=== PATIENT | female | born 1995 | race African-American/Black ===

== ENCOUNTER 2016-06-25 16:56 | Emergency (ER) | payer OTHER | END 2016-06-25 17:00 | disposition left against medical advice (07) | LOC: ER 16:56 | DX: Z53.21 Procedure and treatment not carried out due to patient leaving prior to being seen by health care provider (principal) ==

== ENCOUNTER 2016-06-25 18:37 | Emergency (ER) | payer OTHER ==
--- NOTE | 2016-06-25 19:14 | ER Document Report ---
ED Medical Screen (RME) - General Stated Complaint: POSSIBLE FLU Notes: 20 yo female c/o flu like symptoms x 1 day. + fever, headache, cough. + flu exposure at work. 14 weeks . TRAVEL OUTSIDE OF THE [place] IN LAST 30 DAYS: No - Related Data Allergies/Adverse Reactions: Sulfa (Sulfonamide Antibiotics) Allergy (Verified 06/25/16 19:12) Past Medical History - Past Medical History Cardiac Medical History: Denies: Hx Coronary Artery Disease, Hx Heart Attack, Hx Hypertension Pulmonary Medical History: Denies: Hx Asthma, Hx Bronchitis, Hx COPD, Hx Pneumonia Neurological Medical History: Denies: Hx Cerebrovascular Accident, Hx Seizures Musculoskeltal Medical History: Denies Hx Arthritis Past Surgical History: Reports: Hx Dilation and Curettage - Immunizations Hx Diphtheria, Pertussis, Tetanus Vaccination: Yes Physical Exam - Vital signs Vitals: Temp Pulse Resp BP Pulse Ox 97.8 F 82 16 159/74 H 100 06/25/16 18:50 06/25/16 18:50 06/25/16 18:50 06/25/16 18:50 06/25/16 18:50 Course - Vital Signs Vital signs: Temp Pulse Resp BP Pulse Ox 97.8 F 82 16 159/74 H 100 06/25/16 18:50 06/25/16 18:50 06/25/16 18:50 06/25/16 18:50 06/25/16 18:50
[2016-06-25] MEDS ORDERED: ACETAMINOPHEN 325 MG TABLET PO ONE (21:18)
--- NOTE | 2016-06-25 21:19 | ER Document Report ---
HPI - HPI Patient complains to provider of: fever, congestion Pain Level: 3 Context: Patient is a 20-year-old female, at 14 weeks gestation by first trimester ultrasound, that comes emergency department for chief complaint of fever, congestion, mild cough. Symptoms started today. Patient states there has been a "flu outbreak at work", patient has not been vaccinated for influenza. Patient is taking vitamins, denies any other daily medications, denies any abdominal pain, vomiting, vaginal bleeding or discharge. - REPRODUCTIVE LMP: [id number] Reproductive: REPORTS: : - DERM Skin Color: Normal Past Medical History - General Information source: Patient - Social History Smoking Status: Never Smoker Chew tobacco use (# tins/day): No Frequency of alcohol use: None Drug Abuse: None Lives with: Family Family History: Reviewed & Not Pertinent Patient has suicidal ideation: No Patient has homicidal ideation: No - Medical History Medical History: Negative - Past Medical History Cardiac Medical History: Denies: Hx Coronary Artery Disease, Hx Heart Attack, Hx Hypertension Pulmonary Medical History: Denies: Hx Asthma, Hx Bronchitis, Hx COPD, Hx Pneumonia Neurological Medical History: Denies: Hx Cerebrovascular Accident, Hx Seizures Renal/ Medical History: Denies: Hx Peritoneal Dialysis Musculoskeltal Medical History: Denies Hx Arthritis Past Surgical History: Reports: Hx Dilation and Curettage - Immunizations Hx Diphtheria, Pertussis, Tetanus Vaccination: Yes Vertical Provider Document - CONSTITUTIONAL General Appearance: WD/WN, No Apparent Distress - INFECTION CONTROL TRAVEL OUTSIDE OF THE [place] IN LAST 30 DAYS: No - HEENT HEENT: Atraumatic, Normocephalic, Pharyngeal Erythema - Very mild. negative: Tympanic Membrane Red, Tympanic Membrane Bulging - NECK Neck: Normal Inspection - RESPIRATORY Respiratory: Breath Sounds Normal, No Respiratory Distress O2 Sat by Pulse Oximetry: 100 - CARDIOVASCULAR Cardiovascular: Regular Rate, Regular Rhythm - GI/ABDOMEN Gastrointestinal: Abdomen Soft, Abdomen Non-Tender - BACK Back: Normal Inspection - MUSCULOSKELETAL/EXTREMETIES Musculoskeletal/Extremeties: MAEW, FROM, Non-Tender - NEURO Level of Consciousness: Awake, Alert, Appropriate - DERM Integumentary: Warm, Dry, No Rash Course - Re-evaluation Re-evalutation: Patient alert and well-appearing, unremarkable physical exam, influenza negative. Patient happy with these findings. No concerning abnormalities or indication for additional workup at this time. - Vital Signs Vital signs: Temp Pulse Resp BP Pulse Ox 97.8 F 82 16 159/74 H 100 06/25/16 18:50 06/25/16 18:50 06/25/16 18:50 06/25/16 18:50 06/25/16 18:50 Discharge - Discharge Clinical Impression: Sinus congestion Fever Qualifiers: Fever type: unspecified Qualified Code(s): R50.9 - Fever, unspecified Condition: Stable Disposition: HOME, SELF-CARE Additional Instructions: Influenza test is negative. Symptoms are consistent with an upper respiratory virus, take Tylenol, hydrate, rest. Follow-up with primary care. Return to the emergency department for any concerning symptoms. Forms: Return to Work
[2016-06-25 23:16] VITALS: BP 128/77
== END 2016-06-25 22:10 | disposition home or self-care (01) ==
LOC: ER 18:37
DX: O26.92 Pregnancy related conditions, unspecified, second trimester (principal); R09.81 Nasal congestion; R50.9 Fever, unspecified; Z3A.14 14 weeks gestation of pregnancy
CPT/HCPCS: 87804; 99283

== ENCOUNTER 2017-11-23 19:14 | Emergency (ER) | payer MEDICAID, OTHER ==
--- NOTE | 2017-11-23 20:11 | ER Document Report ---
ED GI/ - General Chief Complaint: Abdominal Cramping Stated Complaint: ABDOMINAL PAIN Time Seen by Provider: 11/23/17 20:04 Notes: Patient is a 22-year-old female, at 12 weeks gestation by first trimester ultrasound, the [facility] emergency department for chief complaint of lower abdominal pain. Pain is intermittent, has been happening since she denies vaginal bleeding, discharge, dysuria, flank pain, fever, vomiting. She states that she was having similar symptoms when she had a previous miscarriages. She has had 2 D&C procedures. Denies any other medical history, on vitamins and Reglan. TRAVEL OUTSIDE OF THE [place] IN LAST 30 DAYS: No - Related Data Allergies/Adverse Reactions: Sulfa (Sulfonamide Antibiotics) Allergy (Verified 11/23/17 19:15) Past Medical History - General Information source: Patient - Social History Smoking Status: Never Smoker Frequency of alcohol use: None Drug Abuse: None Lives with: Family Family History: Reviewed & Not Pertinent Patient has suicidal ideation: No Patient has homicidal ideation: No - Medical History Medical History: Negative - Past Medical History Cardiac Medical History: Denies: Hx Coronary Artery Disease, Hx Heart Attack, Hx Hypertension Pulmonary Medical History: Denies: Hx Asthma, Hx Bronchitis, Hx COPD, Hx Pneumonia Neurological Medical History: Denies: Hx Cerebrovascular Accident, Hx Seizures Renal/ Medical History: Denies: Hx Peritoneal Dialysis Musculoskeletal Medical History: Denies Hx Arthritis Past Surgical History: Reports: Hx Dilation and Curettage - Immunizations Hx Diphtheria, Pertussis, Tetanus Vaccination: Yes Review of Systems - Review of Systems Constitutional: No symptoms reported EENT: No symptoms reported Cardiovascular: No symptoms reported Respiratory: No symptoms reported Gastrointestinal: See HPI Genitourinary: See HPI Female Genitourinary: See HPI Musculoskeletal: No symptoms reported Skin: No symptoms reported Hematologic/Lymphatic: No symptoms reported Neurological/Psychological: No symptoms reported Physical Exam - Vital signs Vitals: Temp Pulse Resp BP Pulse Ox 99.2 F 75 16 147/70 H 100 11/23/17 19:21 11/23/17 19:21 11/23/17 19:21 11/23/17 19:21 11/23/17 19:21 - Notes Notes: GENERAL: Alert, interacts well. No acute distress. HEAD: Normocephalic, atraumatic. EYES: Pupils equal, round, and reactive to light. Extraocular movements intact. ENT: Oral mucosa moist, tongue midline. NECK: Full range of motion. Supple. Trachea midline. LUNGS: Clear to auscultation bilaterally, no wheezes, rales, or rhonchi. No respiratory distress. HEART: Regular rate and rhythm. No murmur ABDOMEN: Soft, non-tender. Non-distended. Bowel sounds present in all 4 quadrants. EXTREMITIES: Moves all 4 extremities spontaneously. No edema, normal radial and dorsalis pedis pulses bilaterally. No cyanosis. BACK: no cervical, thoracic, lumbar midline tenderness. No saddle anesthesia, normal distal neurovascular exam. NEUROLOGICAL: Alert and oriented x3. Normal speech. [cranial nerves II through XII grossly intact]. PSYCH: Normal affect, normal mood. SKIN: Warm, dry, normal turgor. No rashes or lesions noted. Course - Re-evaluation Re-evalutation: Patient currently asymptomatic, soft benign abdomen, unremarkable vital signs. Patient is very well-appearing. HCG is elevated appropriately, urinalysis unremarkable with no infection. Patient reporting O+ blood type. Ultrasound showing small subchorionic bleed, living intrauterine gestation, no other noted abnormalities. Patient was provided with a copy of the report, this was discussed, discussed recommendations, follow-up, return precautions. Patient states understanding and agreement. - Vital Signs Vital signs: Temp Pulse Resp BP Pulse Ox 98.9 F 72 18 138/76 H 97 11/23/17 23:11 11/23/17 23:11 11/23/17 23:11 11/23/17 23:11 11/23/17 23:11 - Laboratory Laboratory results interpreted by me: 11/23/17 11/23/17 20:39 20:39 Beta HCG, Quant 47168.00 H Urine Ketones 20 H Urine Ascorbic Acid 40 H Discharge - Discharge Clinical Impression: Abdominal cramping affecting Condition: Stable Disposition: HOME, SELF-CARE Additional Instructions: Your evaluation shows a small subchorionic bleed as we discussed, this is most likely the cause of your pain, no other abnormalities are seen. Please use caution, no running, heavy lifting, jumping, sexual intercourse, or other significant physical activity until cleared by HVAC INSTRUCTOR. Follow closely with OB/ ANALYTICS DEVELOPER. Return for any concerning symptoms including severe pain, passing out, fever, or any other concerning symptoms. Forms: Return to Work, Elevated Blood Pressure Referrals: SHUKRI BERGMAN MD [Primary Care Provider] - Follow up as needed
[2017-11-23 21:01] LABS: APPEARANCE,URINE CLEAR; BILIRUBIN,URINE NEGATIVE (NEGATIVE); COLOR,URINE YELLOW; GLUCOSE, URINE NEGATIVE (NEGATIVE); KETONES,URINE 20 mg/dL (NEGATIVE); LEUKOCYTE ESTERASE,URINE NEGATIVE (NEGATIVE); NITRITE,URINE NEGATIVE (NEGATIVE); PROTEIN,URINE NEGATIVE (NEGATIVE); URINE SPECIFIC GRAVITY 1.017; UROBILINOGEN,URINE NEGATIVE mg/dL (<2.0)
--- NOTE | 2017-11-23 21:47 | RADIOLOGY REPORT (SQ) ---
EXAM DESCRIPTION: U/S OB TRANSVAG W/DOPPLER COMPLETED DATE/TIME: 11/23/2017 9:17 pm REASON FOR STUDY: 1st trimester, lower abd pain COMPARISON: None. TECHNIQUE: Transvaginal static and realtime grayscale images acquired of the pelvis. Additional meghan cted spectral and color Doppler images recorded. All images stored on PACs. bHCG: Pending. CLINICAL DATES: 12 weeks 5 days LIMITATIONS: None. FINDINGS: FETUS: Living intrauterine . ULTRASOUND EGA: 12 weeks 6 days ULTRASOUND MEGAN: 06/01/2018 CRL: 6.61 cm FHR: 155 beats per minute. SUBCHORIONIC BLEED: Yes SIZE OF BLEED: Small UTERUS: No masses. No anomalies. CERVICAL LENGTH: 3.7 cm Closed. RIGHT ADNEXA: Ovary not identified. No adnexal free fluid. No adnexal masses. LEFT ADNEXA: Normal vascular flow to the ovary. No adnexal free fluid. No adnexal masses. FREE FLUID: None. OTHER: No other significant finding. IMPRESSION: LIVING INTRAUTERINE . EGA 12 weeks 6 days Small subchorionic bleeding. Trimester of : First - 0 to 13 weeks. TECHNICAL DOCUMENTATION: JOB ID: [id number] [email or web address]- All Rights Reserved rev Reading location - IP/workstation name: [email or web address]
[2017-11-23 23:12] VITALS: BP 138/76
== END 2017-11-23 23:13 | disposition home or self-care (01) ==
LOC: ER 19:14
DX: O20.8 Other hemorrhage in early pregnancy (principal); O26.891 Other specified pregnancy related conditions, first trimester; R10.30 Lower abdominal pain, unspecified; Z3A.12 12 weeks gestation of pregnancy; Z88.2 Allergy status to sulfonamides
CPT/HCPCS: 36415; 76817; 81001; 84702; 93976; 99284

== ENCOUNTER 2018-03-21 23:53 | Outpatient (CLI) | payer MEDICAID ==
[2018-03-22 01:13] LABS: APPEARANCE,URINE SLIGHTLY-CLOUDY; BILIRUBIN,URINE NEGATIVE (NEGATIVE); COLOR,URINE YELLOW; GLUCOSE, URINE NEGATIVE (NEGATIVE); KETONES,URINE NEGATIVE (NEGATIVE); LEUKOCYTE ESTERASE,URINE LARGE (NEGATIVE); NITRITE,URINE NEGATIVE (NEGATIVE); PROTEIN,URINE NEGATIVE (NEGATIVE); URINE SPECIFIC GRAVITY 1.024
[2018-03-22 01:26] LABS: URINE AMPHETAMINES SCREEN NEGATIVE; URINE BARBITURATES SCREEN NEGATIVE; URINE BENZODIAZEPINES SCREEN NEGATIVE; URINE COCAINE SCREEN NEGATIVE; URINE MARIJUANA (THC) SCREEN NEGATIVE; URINE METHADONE SCREEN NEGATIVE; URINE PHENCYCLIDINE SCREEN NEGATIVE
== END 2018-03-22 01:48 | disposition home or self-care (01) ==
LOC: LC 23:53
PROVIDERS: ATTEND Student in an Organized Health Care Education/Training Program
PROC: 4A1HXCZ Monitoring of Products of Conception, Cardiac Rate, External Approach (ICD-10-PCS; principal; 2018-03-21)
DX: O47.03 False labor before 37 completed weeks of gestation, third trimester (principal); Z3A.29 29 weeks gestation of pregnancy
CPT/HCPCS: 80307; 81001

== ENCOUNTER 2018-06-06 14:26 | Inpatient (IN) | payer MEDICAID ==
[2018-06-06 14:50] LABS: APPEARANCE,URINE SLIGHTLY-CLOUDY; BILIRUBIN,URINE NEGATIVE (NEGATIVE); COLOR,URINE YELLOW; GLUCOSE, URINE NEGATIVE (NEGATIVE); KETONES,URINE NEGATIVE (NEGATIVE); LEUKOCYTE ESTERASE,URINE MODERATE (NEGATIVE); NITRITE,URINE NEGATIVE (NEGATIVE); PROTEIN,URINE NEGATIVE (NEGATIVE); UROBILINOGEN,URINE NEGATIVE mg/dL (<2.0)
[2018-06-06] MEDS ORDERED: RINGERS SOLUTION,LACTATED 1,000 ML IV PRN (14:58)
[2018-06-06 15:06] LABS: URINE AMPHETAMINES SCREEN NEGATIVE; URINE BARBITURATES SCREEN NEGATIVE; URINE BENZODIAZEPINES SCREEN NEGATIVE; URINE COCAINE SCREEN NEGATIVE; URINE MARIJUANA (THC) SCREEN NEGATIVE; URINE METHADONE SCREEN NEGATIVE; URINE PHENCYCLIDINE SCREEN NEGATIVE
[2018-06-06 15:36] LABS: ABSOLUTE MONOCYTES (AUTO) 0.5 10^3/uL (0.1-1.4); ABSOLUTE NEUT (AUTO) 11.3 10^3/uL (1.7-8.2); BASOPHILS % (AUTO) 0.1 % (0-2); EOSINOPHILS % (AUTO) 0.3 % (0-6); HEMATOCRIT 38.3 % (36.0-47.0); LYMPHOCYTES % (AUTO) 7.8 % (13-45); MEAN CORPUSCULAR HEMOGLOBIN 30.8 pg (27.0-33.4); MEAN CORPUSCULAR HGB CONC 34.1 g/dL (32.0-36.0); MEAN CORPUSCULAR VOLUME 90 fl (80-97); PLATELET COUNT 276 10^3/uL (150-450); RED BLOOD COUNT 4.24 10^6/uL (3.72-5.28); RED CELL DISTRIBUTION WIDTH 12.8 % (11.5-14.0); SEGMENTED NEUTROPHILS % (AUTO) 87.8 % (42-78); TOTAL CELLS COUNTED % (AUTO) 100 %; WHITE BLOOD COUNT 12.9 10^3/uL (4.0-10.5)
[2018-06-06] MEDS ORDERED: OXYTOCIN 10 UNIT/ML VIAL ONE (18:39)
[2018-06-06] MEDS ORDERED: OXYTOCIN/NORMAL SALINE 20 UNIT/1,000 ML RTUINJ ONE (18:39)
[2018-06-06] MEDS ORDERED: MISOPROSTOL 0.2 MG TABLET ONE (18:39)
[2018-06-06] MEDS ORDERED: LIDOCAINE 1% INJ-PF (10 MG/ML) 30 ML SDV ONE (18:39)
--- NOTE | 2018-06-06 21:17 | Admission Physical ---
Datetime Report Generated by CPN: 06/06/2018 21:16 CURRENT ADMISSION Chief Complaint: Uterine Contractions Indication for Induction: Not Applicable Admit Impression : Term, Intrauterine ; Active Labor Admit Plan: Admit to Unit ALLERGIES Medication Allergies: Yes Medication Allergies: Sulfa (Sulfonamide Antibiotics) (03/22/2018) Latex: No Latex Allergies Food Allergies: none Environmental Allergies: none OBSTETRICAL HISTORY EDC: 06/02/2018 00:00 : 3 Para: 0 Term: 0 : 0 SAB: 2 IAB: 0 Ectopic: 0 Livin Cesareans: 0 VBACs: 0 Multiple Births: 0 Gestational Diabetes: No Rh Sensitization: No Incompetent Cervix: No YA: No Infertility: No ART Treatment: No Uterine Anomaly: No IUGR: No Hx Previous C/S: No Macrosomia: No Hx Loss/Stillborn: No PIH: No Hx : No Placenta Previa/Abruption: No Depression/PP Depression: No PTL/PROM: No Post Hemorrhage: No Current Procedures: Ultrasound Obstetrical History Comments: G1 - 2014 G2 - 2016 G3 - current SEE RECORDS Alcohol: No Marijuana : No Cocaine: No Other Illicit Drugs: No Cigarettes: Never Smoker. [id number] MEDICAL HISTORY Diabetes: No Blood Transfusion: No Pulmonary Disease (Asthma, TB): No Breast Disease: No Hypertension: No [place]er Surgery: No Heart Disease: No Hosp/Surgery: Yes Autoimmune Disorder: No Anesthetic Complications: No Kidney Disease: No Abnormal Pap Smear: No Neuro/Epilepsy: No Psychiatric Disorders: No Other Medical Diseases: No Hepatitis/Liver Disease: No Significant Family History: No Varicosities/Phlebitis: No Trauma/Violence : No Thyroid Dysfunction: No Medical History Comments: d_c, hypothyroidism INFECTIOUS HISTORY Gonorrhea: No Genital Herpes: No Chlamydia: No Tuberculosis: No Syphilis: No Hepatitis: No HIV/AIDS Exposure: No Rash or Viral Illness: No HPV: No PHYSICAL EXAM General: Normal HEENT: Normal Neurologic: Normal Thyroid: Normal Heart: Normal Lungs: Normal Breast: Normal Back: Normal Abdomen: Normal Genitourinary Exam: Normal Extremities: Normal DTRs: Normal Pelvic Type: Adequate Vital Signs: Reviewed; Within Normal Limits VAGINAL EXAM Dilatation: 7 Effacement: 90 Station: -1 MEMBRANES Pooling: Negative Membranes: Intact FETUS A EGA: 40.4 Monitoring: External US FHR- Baseline: 130 Variability: Moderate 6-25bpm Accelerations: 15X15 Decelerations: None FHR Category: Category I Estimated Weight (gm): 3000 Presentation: Vertex PLANS FOR LABOR AND DELIVERY Labor and Delivery: None Pain Management: Natural; Epidural Feeding Preference: Breast Benefit of Breast Feed Discussed: Yes Circumcision: N/A INFORMED CONSENT Signature: with User ID: [email or web address]
[2018-06-06] MEDS ORDERED: PROMETHAZINE HCL 25 MG TABLET PO PRN (21:19)
[2018-06-06] MEDS ORDERED: DIBUCAINE 1% OINTMENT 28 GM TP PRN (21:19)
[2018-06-06] MEDS ORDERED: PROMETHAZINE HCL 25 MG SUPP.RECT PR PRN (21:19)
[2018-06-06] MEDS ORDERED: MEASLES,MUMPS&RUBELLA VACC/PF 0.5 ML VIAL SUBCUT PRN (21:19)
[2018-06-06] MEDS ORDERED: MAGNESIUM HYDROXIDE SUSP 30 ML UDCUP PO PRN (21:19)
[2018-06-06] MEDS ORDERED: PROMETHAZINE HCL INJ 25 MG/1 ML VIAL IV PRN (21:19)
[2018-06-06] MEDS ORDERED: DIPHENHYDRAMINE HCL 25 MG CAPSULE PO PRN (21:19)
[2018-06-06] MEDS ORDERED: PSEUDOEPHEDRINE HCL 30 MG TABLET PO PRN (21:19)
[2018-06-06] MEDS ORDERED: ACETAMINOPHEN WITH CODEINE #3 TABLET PO PRN ×2 (21:19)
[2018-06-06] MEDS ORDERED: ZOLPIDEM TARTRATE 5 MG TABLET PO PRN (21:19)
[2018-06-06] MEDS ORDERED: OXYTOCIN/NORMAL SALINE 20 UNIT/1,000 ML RTUINJ IV PRN (21:19)
[2018-06-06] MEDS ORDERED: BENZOCAINE/MENTHOL AEROSOL SPRAY 56 ML TOP PRN (21:19)
[2018-06-06] MEDS ORDERED: DIPH/PERTUSS(ACELL)/TETANUS VAC/PF 0.5 ML SYR (>=10YO) IM PRN (21:19)
[2018-06-06] MEDS ORDERED: GLYCERIN/WITCH HAZEL LEAF 1 EACH MED..PAD TP PRN (21:19)
[2018-06-06] MEDS ORDERED: ACETAMINOPHEN 650 MG SUPP.RECT PR PRN (21:19)
[2018-06-06] MEDS ORDERED: NA PHOS,M-B/NA PHOS,DI-BA (ADULT) 133 ML ENEMA PR PRN (21:19)
[2018-06-06] MEDS ORDERED: IBUPROFEN 800 MG TABLET ONE (22:44)
[2018-06-07] MEDS: IBUPROFEN 800 MG TABLET PO SCH ×4 (05:12→21:06)
[2018-06-07] MEDS: FAMOTIDINE 20 MG TABLET PO SCH ×3 (05:12→21:06)
--- NOTE | 2018-06-07 08:28 | Delivery Summary ---
Del Sum A-C Datetime Report Generated by CPN: 06/07/2018 08:28 DELIVERY PERSONNEL DELIVERY PERSONNEL: [id number] Delivery Doctor:: Lorenza Oliver MD Labor and Delivery Nurse:: Oneida Martinez RNtheatrical scenic designer Nurse:: Nia Lane RN Blower [employer] Furnace:: Meche Osorio RN Signal Timer/MERCHANDISING TEAM LEAD: Telma Monreal, ST MATERNAL INFORMATION Delivery Anesthesia: None Medications After Delivery: Pitocin Drip 20 Units/1000ml NSS Estimated Blood Loss (ml): 300 Maternal Complications: None LABOR SUMMARY EDC: 06/02/2018 00:00 No. Babies in Womb: 1 Attempted: No Labor Anesthesia: None LABOR INFORMATION Reason for Induction: Not Applicable Onset of Labor: 06/06/2018 14:51 Complete Dilatation: 06/06/2018 20:45 Oxytocin: Augmentation Group B Beta Strep: negative Antibiotics # of Doses: 0 Antibiotics Time of Last Dose: n/a Steroids Given: None Reason Steroids Not Administered: Not Applicable MEMBRANES Membranes Rupture Method: Artificial Rupture of Membranes: 06/06/2018 20:55 Length of Rupture (hr): 0.10 Amniotic Fluid Color: Clear Amniotic Fluid Amount: Small Amniotic Fluid Odor: Normal STAGES OF LABOR Stage 1 hr: 5 Stage 1 min: 54 Stage 2 hr: 0 Stage 2 min: 16 Stage 3 hr: 0 Stage 3 min: 3 Total Time in Labor hr: 6 Total Time in Labor min: 13 VAGINAL DELIVERY Episiotomy: None Laceration #1: Vaginal Laceration Extension #1: First Degree Laceration Repair: Not Applicable CSECTION DELIVERY Primary Indication: N/A Secondary Indication: N/A CSection Incidence: N/A Labor: N/A Elective: N/A CSection Incision: N/A BABY A INFORMATION Infant Delivery Date/Time: 06/06/2018 21:01 Delivery Date/Time: 06/06/2018 21:01 Method of Delivery: Vaginal Method of Delivery: Vaginal Born in Route : No : N/A : N/A Forceps: N/A Forceps: N/A Vacuum Extraction: N/A Shoulder Dystocia : No Shoulder Dystocia : No PRESENTATION/POSITION BABY A Presentation: Cephalic Cephalic Presentation: Vertex Vertex Position: Right Occipital Anterior Breech Presentation: N/A PLACENTA INFORMATION BABY A Placenta Delivery Time : 06/06/2018 21:04 Placenta Method of Delivery: Spontaneous Placenta Status: Delivered SCORES BABY A Heart Rate 1 min: >100 bpm Resp Effort 1 min: Good Cry Reflex Irritability 1 min: Cough or Sneeze or Pulls Away Muscle Tone 1 min: Active Motion Color 1 min: Blue/Pale Resuscitation Effort 1 min: Tactile Stimulation SCORE 1 MIN: 8 Heart Rate 5 min: >100 bpm Resp Effort 5 min: Good Cry Reflex Irritability 5 min: Cough or Sneeze or Pulls Away Muscle Tone 5 min: Active Motion Color 5 min: Body [place], Extremities Blue SCORE 5 MIN: 9 INFORMATION BABY A Gestational Age at Delivery: 40.4 Gestational Status: Full Term- 39- 40.6 Weeks Outcome : Liveborn Infant Condition : Stable Condition : Stable Sex: Female Sex: Female Infant Sex: Female IDENTIFICATION BABY A Verification Date/Time: 06/06/2018 21:14 ID Band Number: [id number] Mother's Name Verified: Yes Infant RN Verifying : [email or web address] Additional Verifying Personnel: [email or web address] WEIGHT/LENGTH BABY A Birthweight (gm): 2783 Weight (lb): 6 Weight (oz): 2 Length (in): 19.75 Length (cm): 50.17 CORD INFORMATION BABY A No. Cord Vessels: 3 Nuchal Cord : N/A Cord Blood Taken: Yes-For Eval (Mom's Blood Type - or O+) Suction: Mouth ASSESSMENT BABY A Infant Complications: None Physical Findings at Delivery: Within Normal Limits Physical Findings- Other: see nursery assessment Infant Respirations: Appears Normal Skin to Skin: Yes Mica Miner/ALS Called : No Infant Care By: lexis osorio Transferred To: Remains with Mother SIGNATURES Signature: with User ID: [email or web address]
[2018-06-07] MEDS ORDERED: DSS PO SCH (10:00)
[2018-06-07] MEDS ORDERED: FOLIC PO SCH (10:00)
[2018-06-07] MEDS ORDERED: PRENAT PO SCH (10:00)
[2018-06-07] MEDS ORDERED: IRON FUM PO SCH (10:00)
[2018-06-07] MEDS: FERROUS SULFATE 325 MG TABLET PO SCH ×2 (10:26→21:31)
[2018-06-07] MEDS: PRENATAL VITAMIN W DHA CAPSULE PO SCH ×2 (10:26→11:18)
[2018-06-07] MEDS: DOCUSATE SODIUM 100 MG CAPSULE PO SCH ×2 (10:27→21:30)
[2018-06-07] MEDS: SENNOSIDES/DOCUSATE 8.6-50 MG 1 EACH TABLET PO SCH (10:27)
--- NOTE | 2018-06-07 11:44 | PDOC PROGRESS REPORT ---
Subjective-OB Progress Note for:: 06/07/18 Subjective: 22yo G3 now P1 s/p ppd 1. Ambulating, voiding and without difficulty. Denies any concerns. Physical Exam (OB) Vital Signs: Temp Pulse Resp BP Pulse Ox 98.0 F 72 16 125/63 100 06/07/18 07:39 06/07/18 07:39 06/07/18 07:39 06/07/18 07:39 06/07/18 07:39 Intake & Output 06/06/18 06/07/18 06/08/18 06:59 06:59 06:59 Weight 133.6 kg - General General Appearance: Appears well In distress: None - PIH/Pre-Eclampsia Headache: Absent Epigastric Pain: No Visual Changes: No - Episiotomy/Laceration Episiotomy/Laceration Note: no edema or bleeding noted. - Lochia Lochia Amount: Small 10-25 ml Lochia Color: Rubra/Red - Abdomen Description: Soft, Round Hernia Present: No Fundal Description: Firm, Midline Fundal Height: u/u - u/2 - Respiratory Respiratory Status: No respiratory distress Chest Status: Nontender - Extremities Upper extremity: Normal inspection Lower extremities: Normal inspection - Neurological Cognition: Normal Orientation: AAOx4 - Psychological Associated symptoms: Normal affect, Normal mood Objective-Diagnostic Laboratory: 06/06/18 15:15 06/06/18 06/06/18 06/06/18 14:28 15:15 15:15 WBC 12.9 H RBC 4.24 Hgb 13.0 Hct 38.3 MCV 90 MCH 30.8 MCHC 34.1 RDW 12.8 Plt Count 276 Seg Neutrophils % 87.8 H Lymphocytes % 7.8 L Monocytes % 4.0 Eosinophils % 0.3 Basophils % 0.1 Absolute Neutrophils 11.3 H Absolute Lymphocytes 1.0 Absolute Monocytes 0.5 Absolute Eosinophils 0.0 Absolute Basophils 0.0 Urine Color YELLOW Urine Appearance SLIGHTLY-CLOUDY Urine pH 6.[address] [place] 1.010 Urine Protein NEGATIVE Urine Glucose (UA) NEGATIVE Urine Ketones NEGATIVE Urine Blood MODERATE H Urine Nitrite NEGATIVE Ur Leukocyte Esterase MODERATE H Blood Type O POSITIVE Antibody Screen NEGATIVE Assessment and Plan(PN) - Assessment and Plan (1) Vaginal delivery Is this a current diagnosis for this admission?: Yes Plan: routine pp care, continue to monitor for s/s of infection. (2) Vaginal abrasion, delivered, current hospitalization Is this a current diagnosis for this admission?: Yes Plan: continue to monitor for s/s of infection - Time Spent with Patient Time with patient: Less than 15 minutes Medications reviewed and adjusted accordingly: Yes - Disposition Anticipated Discharge: Home Within: within 24 hours
[2018-06-07 12:23] LABS: HEMATOCRIT 35.8 % (36.0-47.0); HEMOGLOBIN 12.1 g/dL (12.0-15.5); MEAN CORPUSCULAR HEMOGLOBIN 30.7 pg (27.0-33.4); MEAN CORPUSCULAR HGB CONC 33.8 g/dL (32.0-36.0); MEAN CORPUSCULAR VOLUME 91 fl (80-97); PLATELET COUNT 244 10^3/uL (150-450); RED BLOOD COUNT 3.95 10^6/uL (3.72-5.28); RED CELL DISTRIBUTION WIDTH 13.1 % (11.5-14.0); WHITE BLOOD COUNT 13.6 10^3/uL (4.0-10.5)
[2018-06-08] MEDS: IBUPROFEN 800 MG TABLET PO SCH ×2 (05:08→14:27)
[2018-06-08 08:53] VITALS: BP 123/77
[2018-06-08] MEDS: FERROUS SULFATE 325 MG TABLET PO SCH ×2 (11:27→17:36)
[2018-06-08] MEDS: FAMOTIDINE 20 MG TABLET PO SCH (11:27)
[2018-06-08] MEDS: PRENATAL VITAMIN W DHA CAPSULE PO SCH ×2 (11:27→11:29)
[2018-06-08] MEDS: SENNOSIDES/DOCUSATE 8.6-50 MG 1 EACH TABLET PO SCH (11:27)
[2018-06-08] MEDS: DOCUSATE SODIUM 100 MG CAPSULE PO SCH ×2 (11:27→17:36)
--- NOTE | 2018-06-08 11:55 | PDOC PROGRESS REPORT ---
Subjective-OB Progress Note for:: 06/08/18 Subjective: Doing well, ready to go home, voiding, scant bleeding Physical Exam (OB) Vital Signs: Temp Pulse Resp BP Pulse Ox 98.4 F 61 15 123/77 100 06/08/18 08:14 06/08/18 08:14 06/08/18 08:14 06/08/18 08:14 06/08/18 08:14 Intake & Output 06/07/18 06/08/18 06/09/18 06:59 06:59 06:59 Intake Total 3000 Balance 3000 Weight 133.6 kg - PIH/Pre-Eclampsia DTR's: 2 + Clonus: Negative Headache: Absent Epigastric Pain: No Visual Changes: No - Lochia Lochia Amount: Scant < 10 ml Lochia Color: Serosa/Brown - Abdomen Description: Soft Hernia Present: No Fundal Description: Firm, Midline Fundal Height: u/u - u/2 Objective-Diagnostic Laboratory: 06/07/18 12:08 06/07/18 12:08 WBC 13.6 H RBC 3.95 Hgb 12.1 Hct 35.8 L MCV 91 MCH 30.7 MCHC 33.8 RDW 13.1 Plt Count 244 Assessment and Plan(PN) - Assessment and Plan (1) Vaginal delivery Is this a current diagnosis for this admission?: Yes (2) Vaginal abrasion, delivered, current hospitalization Is this a current diagnosis for this admission?: Yes - Time Spent with Patient Time with patient: Less than 15 minutes Medications reviewed and adjusted accordingly: Yes - Disposition Anticipated Discharge: Home Within: within 24 hours
--- NOTE | 2018-06-08 11:58 | PDOC DISCHARGE SUMMARY ---
Final Diagnosis Discharge Date: 06/08/18 - Final Diagnosis (1) Vaginal delivery Is this a current diagnosis for this admission?: Yes (2) Vaginal abrasion, delivered, current hospitalization Is this a current diagnosis for this admission?: Yes Discharge Data - Discharge Medication Home Medications: Prenat 115/Iron Fum/Folic/Dss [ 19 Tablet] 1 each PO DAILY 03/22/18 Gestational Age: 40.4 Reason(s) for Admission: Onset of Labor Procedures: NST, Ultrasound Intrapartum Procedure(s): Spontaneous Vaginal Delivery Complication(s): Laceration-Vaginal Laceration-Degree: 1st - Data Baby 1 Female Weight: 2.778 kg Home with Mother: Yes Complications: No - Diagnosis Test Laboratory: Temp Pulse Resp BP Pulse Ox 98.4 F 61 15 123/77 100 06/08/18 08:14 06/08/18 08:14 06/08/18 08:14 06/08/18 08:14 06/08/18 08:14 06/06/18 06/06/18 06/07/18 14:28 15:15 12:08 RBC 4.24 3.95 Hgb 13.0 12.1 Hct 38.3 35.8 L Urine Opiates Screen NEGATIVE - Discharge information/Instructions Discharge Activity: Activity As Tolerated, No Lifting Over 10 Pounds, No Lifting/Push/Pulling, Pelvic Rest Discharge Diet: As Tolerated, Regular Disposition: HOME, SELF-CARE Follow up with: [facility] in: 4, Weeks
== END 2018-06-08 19:00 | disposition home or self-care (01) | DRG 807 ==
LOC: LC 14:26 → LR 15:04 → UNDODISIN 23:19 → 2S 23:21
PROVIDERS: ADMIT Obstetrics & Gynecology; ATTEND Obstetrics & Gynecology
PROC: 10E0XZZ Delivery of Products of Conception, External Approach (ICD-10-PCS; principal; 2018-06-06)
PROC: 4A1HXCZ Monitoring of Products of Conception, Cardiac Rate, External Approach (ICD-10-PCS; 2018-06-06)
DX: O70.0 First degree perineal laceration during delivery (principal); Z37.0 Single live birth; Z3A.40 40 weeks gestation of pregnancy; Z88.2 Allergy status to sulfonamides
CPT/HCPCS: 36415; 80307; 81005; 85025; 85027; 86592; 86850; 86900; 86901; J2590; J3490

== ENCOUNTER 2018-08-09 22:12 | Emergency (ER) | payer MEDICAID ==
[2018-08-10] MEDS ORDERED: MAG HYDROX/AL HYDROX/SIMETH SUSP 30 ML UDCUP PO ONE (01:07)
[2018-08-10] MEDS ORDERED: METOCLOPRAMIDE HCL ORAL SOLN 10 MG/10 ML UDCUP PO ONE (01:07)
[2018-08-10] MEDS ORDERED: LIDOCAINE 2% VISCOUS SOLN 20 ML UDCUP PO ONE (01:07)
[2018-08-10] MEDS ORDERED: FAMOTIDINE 20 MG TABLET PO ONE (02:00)
[2018-08-10] MEDS ORDERED: SUCRALFATE 1 GM TABLET PO ONE (02:01)
--- NOTE | 2018-08-10 02:08 | ER Document Report ---
ED General - General Chief Complaint: Shortness Of Breath Stated Complaint: DIFFICULTY BREATHING Time Seen by Provider: 08/10/18 01:06 Notes: Patient is a 22-year-old female without chronic medical problems who presents with an episode of vomiting with associated shortness of breath and chest discomfort. Patient states that she ate in an restaurant after leaving the restaurant she began to feel very nauseated. Also felt some tightness in her chest and felt she could not breathe. The patient did have one episode of nonbilious vomiting and states some degree of shortness of breath remained thereafter prompting her to the emergency department. She notes that the shortness of breath has resolved spontaneously without intervention. She describes the discomfort in her chest as being a throbbing, mild, aching pain in her mid chest with some discomfort in her upper back. No pain in the arms, jaw. She denies any ongoing shortness of breath or nausea. Has been able to tolerate oral intake without difficulty. She denies any history of similar symptoms in the past. Nothing seemed to improve or worsen his symptoms when present although states that she has had resolution of symptoms after receiving a GI cocktail here in the emergency department. TRAVEL OUTSIDE OF THE [place] IN LAST 30 DAYS: No - Related Data Allergies/Adverse Reactions: Sulfa (Sulfonamide Antibiotics) Allergy (Verified 08/10/18 00:34) Past Medical History - General Information source: Patient - Social History Smoking Status: Former Smoker Frequency of alcohol use: Social Drug Abuse: None Lives with: Spouse/Significant other Family History: Reviewed & Not Pertinent Patient has suicidal ideation: No Patient has homicidal ideation: No - Past Medical History Cardiac Medical History: Denies: Hx Coronary Artery Disease, Hx Heart Attack, Hx Hypertension Pulmonary Medical History: Denies: Hx Asthma, Hx Bronchitis, Hx COPD, Hx Pneumonia Neurological Medical History: Denies: Hx Cerebrovascular Accident, Hx Seizures Renal/ Medical History: Denies: Hx Peritoneal Dialysis Musculoskeletal Medical History: Denies Hx Arthritis Past Surgical History: Reports: Hx Dilation and Curettage - Immunizations Hx Diphtheria, Pertussis, Tetanus Vaccination: Yes Review of Systems - Review of Systems Notes: Constitutional: Negative for fever. HENT: Negative for sore throat. Eyes: Negative for visual changes. Cardiovascular: Positive for chest pain. Respiratory: Positive for shortness of breath. Gastrointestinal: Negative for abdominal pain, positive for nausea and vomiting Genitourinary: Negative for dysuria. Musculoskeletal: Negative for back pain. Skin: Negative for rash. Neurological: Negative for headaches, weakness or numbness. 10 point ROS negative except as marked above and in HPI. Physical Exam - Vital signs Vitals: Temp Pulse Resp BP Pulse Ox 97.6 F 77 16 153/80 H 100 08/09/18 22:17 08/09/18 22:17 08/09/18 22:17 08/09/18 22:17 08/09/18 22:17 Interpretation: Hypertensive Notes: PHYSICAL EXAMINATION: GENERAL: Well-appearing, well-nourished and in no acute distress. HEAD: Atraumatic, normocephalic. EYES: Pupils equal round and reactive to light, extraocular movements intact, sclera anicteric, conjunctiva are normal. ENT: nares patent, oropharynx clear without exudates. Moist mucous membranes. NECK: Normal range of motion, supple without lymphadenopathy LUNGS: Breath sounds clear to auscultation bilaterally and equal. No wheezes rales or rhonchi. HEART: Regular rate and rhythm without murmurs ABDOMEN: Soft, nontender, normoactive bowel sounds. No guarding, no rebound. No masses appreciated. EXTREMITIES: Normal range of motion, no pitting or edema. No cyanosis. NEUROLOGICAL: No focal neurological deficits. Moves all extremities spontaneously and on command. PSYCH: Normal mood, normal affect. SKIN: Warm, Dry, normal turgor, no rashes or lesions noted. Course - Re-evaluation Re-evalutation: 08/10/18 02:09 Patient presents with signs and symptoms most consistent with esophageal spasming after an episode of nausea and vomiting. Patient had eaten food, began feeling a pressure-like sensation in her chest and upper abdomen. She then vomited. Since that time the shortness of breath and nausea has resolved although she reports she continues to have some mild soreness in her chest. Her EKG is unremarkable without any ischemic changes and her clinical history is not consistent with myocardial infarction. She has no risk factors for this diagnosis other than morbid obesity but given absence of any radiation of discomfort, any diaphoresis, no ongoing shortness of breath, normal EKG I do not believe troponin assay testing is indicated. Her chest x-ray is normal without evidence of esophageal perforation, pneumothorax or widened mediastinum. The patient had resolution of her symptoms after receiving a GI cocktail and famotidine here in the emergency department. At this time will discharge with return precautions and follow-up recommendations. Verbal discharge instructions given a the bedside and opportunity for questions given. Medication warnings reviewed. Patient is in agreement with this plan and has verbalized understanding of return precautions and the need for primary care follow-up in the next 24-72 hours. - Vital Signs Vital signs: Temp Pulse Resp BP Pulse Ox 97.6 F 77 16 153/80 H 100 08/09/18 22:17 08/09/18 22:17 08/10/18 00:43 08/09/18 22:17 08/09/18 22:17 - Diagnostic Test Radiology reviewed: Image reviewed, Reports reviewed Radiology results interpreted by me: 08/10/18 02:10 Chest x-ray: No acute infiltrate, widened mediastinum or pneumothorax - EKG Interpretation by Me Additional EKG results interpreted by me: 08/10/18 02:10 Sinus rhythm, rate 61. No ST elevations or depressions. QTC is 407. Discharge - Discharge Clinical Impression: Esophageal spasm Vomiting Qualifiers: Vomiting type: unspecified Vomiting Intractability: non-intractable Nausea presence: unspecified Qualified Code(s): R11.10 - Vomiting, unspecified Condition: Good Disposition: HOME, SELF-CARE Additional Instructions: Your symptoms appear to be most consistent with stomach and esophageal irritation. Please begin taking famotidine 40 mg in the morning and 40 mg at night. Take Carafate prior to meals. You may also take medicine such as Pepto- Bismol or Tums to assist with your pain. Please return to emergency department immediately if you have worsening of your pain, shortness of breath, vomiting, become unable to exert yourself due to pain or difficulty breathing, you pass out, or have any pain that radiates into your arms, jaw, or back. Please also return if you have any additional symptoms that are concerning to you. As we have discussed, the most important thing is lifestyle changes. You need to avoid smoking, sodas, tea, coffee, alcohol, spicy foods, and acidic foods such as citrus fruits, tomato based products, berries, and most fruit juices. Prescriptions: Famotidine 40 mg PO BID #60 tablet Sucralfate [Carafate 1 gm Tablet] 1 gm PO ACHS #120 tablet
--- NOTE | 2018-08-10 02:39 | RADIOLOGY REPORT (SQ) ---
EXAM DESCRIPTION: XR CHEST 1 VIEW COMPLETED DATE/TME: 08/10/2018 01:07 CLINICAL HISTORY: 22 years, Female, sob Comparison: None FINDINGS: No focal lung consolidation. No pleural effusion. No pneumothorax. Cardiac and mediastinal silhouette is unremarkable. No acute osseous abnormality. Soft tissues are unremarkable. IMPRESSION: No acute findings. No focal lung consolidation.
[2018-08-10 02:47] VITALS: BP 130/70
--- NOTE | 2018-08-10 07:53 | EKG REPORT ---
SEVERITY:- NORMAL ECG - SINUS RHYTHM : Confirmed by: Darrick Maynard MD 10-Aug-2018 07:52:15
== END 2018-08-10 02:51 | disposition home or self-care (01) ==
LOC: ER 22:12
DX: K22.4 Dyskinesia of esophagus (principal); R11.10 Vomiting, unspecified; R06.02 Shortness of breath; R07.89 Other chest pain; Z88.2 Allergy status to sulfonamides
CPT/HCPCS: 93005; 99283; 71045; 93010; J3490 ×5

== ENCOUNTER 2018-08-11 20:23 | Emergency (ER) | payer MEDICAID ==
[2018-08-11] MEDS ORDERED: ONDANSETRON HCL INJ/PF 4 MG/2 ML SDV IV ONE (21:05)
[2018-08-11] MEDS ORDERED: FENTANYL CITRATE INJ/PF 100 MCG/2 ML AMPUL IV ONE (21:09)
[2018-08-11 21:29] LABS: ABSOLUTE EOSINOPHILS # (AUTO) 0.2 10^3/uL (0.0-0.6); ABSOLUTE LYMPHOCYTES (AUTO) 1.3 10^3/uL (0.5-4.7); ABSOLUTE MONOCYTES (AUTO) 0.6 10^3/uL (0.1-1.4); ABSOLUTE NEUT (AUTO) 8.1 10^3/uL (1.7-8.2); BASOPHILS % (AUTO) 0.4 % (0-2); EOSINOPHILS % (AUTO) 2.1 % (0-6); HEMATOCRIT 42.4 % (36.0-47.0); HEMOGLOBIN 14.2 g/dL (12.0-15.5); LYMPHOCYTES % (AUTO) 12.4 % (13-45); MEAN CORPUSCULAR HEMOGLOBIN 30.3 pg (27.0-33.4); MEAN CORPUSCULAR HGB CONC 33.4 g/dL (32.0-36.0); MEAN CORPUSCULAR VOLUME 91 fl (80-97); MONOCYTES % (AUTO) 5.8 % (3-13); PLATELET COUNT 327 10^3/uL (150-450); RED BLOOD COUNT 4.69 10^6/uL (3.72-5.28); RED CELL DISTRIBUTION WIDTH 12.9 % (11.5-14.0); SEGMENTED NEUTROPHILS % (AUTO) 79.3 % (42-78); TOTAL CELLS COUNTED % (AUTO) 100 %; WHITE BLOOD COUNT 10.2 10^3/uL (4.0-10.5)
[2018-08-11 21:32] LABS: APPEARANCE,URINE CLEAR; BILIRUBIN,URINE SMALL (NEGATIVE); COLOR,URINE AMBER; GLUCOSE, URINE NEGATIVE (NEGATIVE); KETONES,URINE NEGATIVE (NEGATIVE); LEUKOCYTE ESTERASE,URINE NEGATIVE (NEGATIVE); NITRITE,URINE NEGATIVE (NEGATIVE); PROTEIN,URINE NEGATIVE (NEGATIVE); URINE SPECIFIC GRAVITY 1.006
[2018-08-11 21:54] LABS: ALANINE AMINOTRANSFERASE 480 U/L (9-52); ALBUMIN 4.4 g/dL (3.5-5.0); ALKALINE PHOSPHATASE 233 U/L (38-126); ANION GAP 10 (5-19); ASPARTATE AMINO TRANSFERASE 349 U/L (14-36); BILIRUBIN,DIRECT 4.7 mg/dL (0.0-0.4); BLOOD UREA NITROGEN 9 mg/dL (7-20); CARBON DIOXIDE 28 mmol/L (22-30); CHLORIDE 102 mmol/L (98-107); GLUCOSE 94 mg/dL (75-110); LIPASE 154.3 U/L (23-300); SODIUM 140.3 mmol/L (137-145); TOTAL PROTEIN 8.1 g/dL (6.3-8.2)
--- NOTE | 2018-08-11 23:18 | RADIOLOGY REPORT (SQ) ---
EXAM DESCRIPTION: U/S ABDOMEN LTD W/DOPPLER CLINICAL HISTORY: 22 years Female; RUQ pain TECHNIQUE: Right upper quadrant ultrasound was performed. COMPARISON: None. FINDINGS: Aorta 1.9 cm diameter Pancreas: Visualized portions are unremarkable. Liver: 17 cm long. No significant intrahepatic ductal distention, although there may be a few mildly distended intrahepatic ducts. Portal venous flow is hepatopedal, normal. Gallbladder: Multiple shadowing calculi. Wall is 2 mm. Positive sonographic Woody's sign. Common bile duct: 7 mm. Distal portion incompletely visualized. Right kidney: 10.2 cm long. No hydronephrosis. IMPRESSION: 1. Cholelithiasis with slightly distended common bile duct. 2. There is a positive Woody's sign, but no objective sonographic evidence for acute cholecystitis. 3. The distended common bile duct raises concern for distal common bile duct stone.
[2018-08-11] MEDS ORDERED: KETOROLAC TROMETHAMINE INJ/PF 30 MG/1 ML SDV IV ONE (23:21)
--- NOTE | 2018-08-12 00:14 | ER Document Report ---
ED General - General Chief Complaint: Abdominal Pain Stated Complaint: RIGHT SIDE PAIN Time Seen by Provider: 08/11/18 23:37 Notes: Patient is a 22-year-old female who presents with complaint of right upper quadrant abdominal pain. Initially started Thursday but worsened over the last few days and became more severe tonight. Worse when she eats or drinks. She has had some vomiting today. No fevers. No previous history of abdominal surgeries. No other medical problems. TRAVEL OUTSIDE OF THE [place] IN LAST 30 DAYS: No - Related Data Allergies/Adverse Reactions: Sulfa (Sulfonamide Antibiotics) Allergy (Verified 08/10/18 00:34) Past Medical History - Social History Smoking Status: Never Smoker Frequency of alcohol use: None Drug Abuse: None Family History: Reviewed & Not Pertinent Patient has suicidal ideation: No Patient has homicidal ideation: No - Past Medical History Cardiac Medical History: Denies: Hx Coronary Artery Disease, Hx Heart Attack, Hx Hypertension Pulmonary Medical History: Denies: Hx Asthma, Hx Bronchitis, Hx COPD, Hx Pneumonia Neurological Medical History: Denies: Hx Cerebrovascular Accident, Hx Seizures Renal/ Medical History: Denies: Hx Peritoneal Dialysis Musculoskeletal Medical History: Denies Hx Arthritis Past Surgical History: Reports: Hx Dilation and Curettage - Immunizations Hx Diphtheria, Pertussis, Tetanus Vaccination: Yes Review of Systems - Review of Systems Notes: My Normal Review Basic REVIEW OF SYSTEMS: CONSTITUTIONAL : Denies fever, chills, or sweats. Denies recent illness. EENT: Denies eye, ear, throat, or mouth pain or symptoms. Denies nasal or sinus congestion. CARDIOVASCULAR: Denies chest pain. RESPIRATORY: Denies cough, cold, or chest congestion. Denies shortness of breath, difficulty breathing, or wheezing. GASTROINTESTINAL: Abdominal pain. Vomiting. GENITOURINARY: Denies difficulty urinating, painful urination, burning, f requency, or blood in urine. MUSCULOSKELETAL: Denies neck or back pain or joint pain or swelling. SKIN: Denies rash or skin lesions. NEUROLOGICAL: Denies altered mental status or loss of consciousness. Denies headache. Denies weakness or paralysis or loss of use of either side. Denies problems with gait or speech. Denies sensory or motor loss. ALL OTHER SYSTEMS REVIEWED AND NEGATIVE. Physical Exam - Vital signs Vitals: Temp Pulse Resp BP Pulse Ox 97.9 F 108 H 16 145/82 H 100 08/11/18 20:45 08/11/18 20:45 08/11/18 20:45 08/11/18 20:45 08/11/18 20:45 - Notes Notes: General Appearance: Well nourished, alert, cooperative, no acute distress, no obvious discomfort. Well-appearing. Vitals: reviewed, See vital signs table. Head: no swelling or tenderness to the head Eyes: PERRL, EOMI, Conjuctiva clear Mouth: No decreasd moisture Lungs: No wheezing, No rales, No rhonci, No accessory muscle use, good air exchange bilaterally. Heart: Normal rate, Regular rythm, No murmur, no rub Abdomen: Normal BS, soft, No rigidity, right upper quadrant abdominal tenderness to palpation. Remainder of abdomen is nontender., No guarding, no rebound, no abdominal masses, no organomegaly Extremities: strength 5/5 in all extremities, good pulses in all extremities, no swelling or tenderness in the extremities, no edema. Skin: warm, dry, appropriate color, no rash Neuro: speech clear, oriented x 3, normal affect, responds appropriately to questions. Course - Re-evaluation Re-evalutation: 08/12/18 00:17 Patient has an obstructing common bile duct stone. We do not have GI coverage or ERCP capability at this time and therefore if the transfer the patient. I did speak with [facility]. I spoke with Dr. Greer who accepts the patient and Dr. Dioni Galicia. They put her on a waiting list as they are on "pre-regional diversion". They said it may be up to 24 hours before they have a bed. I therefore called [facility]. They are on diversion and no not excepting transfers at this time. I therefore called [facility]. They do not have a GI physician covering at this time who performs ERCPs. We will have to keep the patient on wait list at [facility] and continue to manage her until bed becomes available. Dictation of this chart was performed using voice recognition software; therefore, there may be some unintended grammatical errors. 08/12/18 01:07 I did inform patient of the delay in transfer and that she is on a waiting list in [place]. I did offer to call facilities in the [place] area; however, patient says she does not want to travel this far and prefers to wait for a bed at [facility]. 08/12/18 02:40 We do have a bed assignment at [facility]. We do have transport availability and transfer has just arrived. Patient says that her pain is well controlled this time she has no nausea. Patient is medically stable for transport. Patient clinically looks well on exam. Dictation of this chart was performed using voice recognition software; therefore, there may be some unintended grammatical errors. - Vital Signs Vital signs: Temp Pulse Resp BP Pulse Ox 98.5 F 91 20 138/76 H 100 08/12/18 02:16 08/12/18 02:16 08/12/18 02:16 08/12/18 02:16 08/12/18 02:16 - Laboratory Result Diagrams: 08/11/18 21:07 08/11/18 21:07 Laboratory results interpreted by me: 08/11/18 08/11/18 08/11/18 21:07 21:07 21:07 Seg Neutrophils % 79.3 H Lymphocytes % 12.4 L Total Bilirubin 6.0 H Direct Bilirubin 4.7 H AST 349 H ALT 480 H Alkaline Phosphatase 233 H Urine Blood SMALL H Urine Bilirubin SMALL H Urine Urobilinogen 2.0 H Discharge - Discharge Clinical Impression: Choledocholithiasis, Biliary obstruction Condition: Stable Disposition: [facility]
[2018-08-12 02:17] VITALS: BP 138/76
== END 2018-08-12 03:02 | disposition short-term general hospital (02) ==
LOC: ER 20:23
DX: K80.51 Calculus of bile duct without cholangitis or cholecystitis with obstruction (principal); R10.11 Right upper quadrant pain; R11.10 Vomiting, unspecified; Z88.2 Allergy status to sulfonamides
CPT/HCPCS: 99285; 96374; 96375; 36415; 87086; 83690; 85025; 81025; 80053; 81001; 76705; 93976; J3010; J1885; J2405